=== PATIENT | male | born 2000 | race African-American/Black ===

== ENCOUNTER 2024-05-02 12:23 | Emergency (ER) | payer MEDICAID ==
[~2024-05-02] VITALS: Ht 182.9 cm; Wt 78.0 kg
[~2024-05-02 12:23] MED LIST: PHEN100C4
[2024-05-02 13:09] VITALS: BP 117/72; PULSE 91; RESP 20; TEMP 98.2; O2SAT 99
[2024-05-02] MEDS ORDERED: IBUP-2029 MT (13:40)
== END 2024-05-02 14:50 | disposition home or self-care (01) ==
LOC: ER 14:02
DX: S60.221A Contusion of right hand, initial encounter (principal); W18.30XA Fall on same level, unspecified, initial encounter; Y93.89 Activity, other specified; Y92.89 Other specified places as the place of occurrence of the external cause; Y99.8 Other external cause status
CPT/HCPCS: 29125; 73130; 99283

== ENCOUNTER 2025-04-23 08:21 | Emergency (ER) | payer MEDICAID ==
[~2025-04-23] VITALS: Ht 188 cm; Wt 73.0 kg
[~2025-04-23 08:21] MED LIST changes: +IBUP-2029 MT
[2025-04-23 08:24] VITALS: O2SAT 99
[2025-04-23 08:34] VITALS: BP 102/62; PULSE 63; RESP 18; TEMP 36.6; O2SAT 100
== END 2025-04-23 10:25 | disposition home or self-care (01) ==
LOC: ER 08:21
DX: J06.9 Acute upper respiratory infection, unspecified (principal)
CPT/HCPCS: 99281; 99282